=== PATIENT | female | born 1955 | race Caucasian/White ===

== ENCOUNTER 2020-04-19 10:18 | Outpatient (CLI) | payer MEDICARE ==
[2020-04-19 12:11] LABS: THYROID STIMULATING HORMONE 2.39 uIU/mL (0.34-5.60)
[2020-04-19 12:12] LABS: FREE T3 2.87 pg/mL (2.5-3.9)
[2020-04-19 12:13] LABS: FREE T4 (FREE THYROXINE) 0.73 ng/dL (0.58-1.64)
== END 2020-04-19 10:19 | disposition home or self-care (01) ==
LOC: LAB 10:18
PROVIDERS: ATTEND Internal Medicine Endocrinology, Diabetes & Metabolism
DX: E89.0 Postprocedural hypothyroidism (principal)
CPT/HCPCS: 36415; 84439; 84443; 84481

== ENCOUNTER 2020-09-17 11:33 | Outpatient (CLI) | payer MEDICARE, OTHER ==
--- NOTE | 2020-09-17 14:18 | XRAY Report ---
PROCEDURE: Cervical Spine 2 View INDICATIONS: CERVICAL NECK SPINE TECHNIQUE: 3 view(s) of the cervical spine were acquired. COMPARISON: None. FINDINGS: Bones: No fractures or dislocations to the T1 level. Odontoid view is suboptimal but grossly unremar kable. Multilevel disc space narrowing and endplate osteophyte formation throughout the mid and lower cervical spine. Mild grade 1 retrolisthesis of C3 on C4. No suspicious bony lesions. Soft tissues: No prevertebral soft tissue swelling. IMPRESSION: Multilevel degenerative disc disease. No acute fracture. No osseous lesion. If symptoms and/or clinical suspicion for pathology continue, further assessment with repeat plain films, or adva nced imaging (e.g., CT, MRI, or bone scan) is recommended for further assessment. Reviewed by: Ramila Mathias MD on 09/17/2020 2:17 PM PST Approved by: Ramila Mathias MD on 09/17/2020 2:17 PM PST Station ID: [id number]
== END 2020-09-17 11:34 | disposition home or self-care (01) ==
LOC: DI.N 11:33
PROVIDERS: ATTEND Family Medicine
DX: M50.30 Other cervical disc degeneration, unspecified cervical region (principal)

== ENCOUNTER 2021-08-18 11:55 | Outpatient (CLI) | payer MEDICARE, OTHER ==
[2021-08-18 12:54] LABS: THYROID STIMULATING HORMONE 14.62 uIU/mL (0.34-5.60)
[2021-08-18 12:55] LABS: FREE T3 3.32 pg/mL (2.5-3.9)
[2021-08-18 12:56] LABS: FREE T4 (FREE THYROXINE) 0.67 ng/dL (0.58-1.64)
== END 2021-08-18 11:56 | disposition home or self-care (01) ==
LOC: LAB 11:55
PROVIDERS: ATTEND Internal Medicine Endocrinology, Diabetes & Metabolism
DX: E06.3 Autoimmune thyroiditis (principal); E89.0 Postprocedural hypothyroidism; C73 Malignant neoplasm of thyroid gland
CPT/HCPCS: 36415; 81599; 84432; 84439; 84443; 84481; 86800

== ENCOUNTER 2021-10-20 12:20 | Outpatient (CLI) | payer OTHER ==
--- NOTE | 2021-10-20 13:47 | XRAY Report ---
PROCEDURE: Thoracic Spine 2 View INDICATIONS: THORACIC PAIN TECHNIQUE: 3 views of the thoracic spine were acquired. COMPARISON: None. FINDINGS: Bones: No fractures or dislocations. No suspicious bony lesions. Visualized ribs are intact. Mild m ultilevel disc space narrowing and endplate osteophyte formation. Soft tissues: No paravertebral str ipe thickening. IMPRESSION: Multilevel degenerative disc disease. No acute fracture. No osseous lesion. If symptoms and/or clinic al suspicion for pathology continue, further assessment with repeat plain films, or advanced imaging (e.g., CT, MRI, or bone scan) is recommended for further assessment. Reviewed by: Ramila Mathias MD on 10/20/2021 1:46 PM PDT Approved by: Ramila Mathias MD on 10/20/2021 1:46 PM PDT Station ID: [id number]
== END 2021-10-20 12:21 | disposition home or self-care (01) ==
LOC: DI.N 12:20
PROVIDERS: ATTEND Family Medicine
DX: M51.34 Other intervertebral disc degeneration, thoracic region (principal)

== ENCOUNTER 2022-02-15 11:18 | Outpatient (CLI) | payer OTHER ==
--- NOTE | 2022-02-15 14:05 | XRAY Report ---
PROCEDURE: Foot 3 View LT INDICATIONS: L FOOT PX TECHNIQUE: 3 views of the foot were acquired. COMPARISON: None FINDINGS: Bones: No fractures or dislocations. Degenerative changes of the interphalangeal joints. No suspici ous bony lesions. No erosions. Soft tissues: No tibiotalar joint effusion. Achilles tendon appears normal. IMPRESSION: Degenerative changes. No acute abnormality. Reviewed by: Mark Barajas on 02/15/2022 2:04 PM PDT Approved by: Mark Barajas on 02/15/2022 2:04 PM PDT Station ID: [id number]
--- NOTE | 2022-02-15 14:11 | XRAY Report ---
PROCEDURE: Knee 3 View RT INDICATIONS: R KNEE PX TECHNIQUE: 3 views of the right knee(s) were acquired. COMPARISON: None. FINDINGS: Bones: There is a transverse fracture of the patella. No suspicious bony lesions. Soft tissues: Suprapatellar joint effusion. No suspicious soft tissue calcifications. IMPRESSION: Transverse patellar fracture. Reviewed by: Mark Barajas on 02/15/2022 2:09 PM PDT Approved by: Mark Barajas on 02/15/2022 2:09 PM PDT Station ID: [id number]
== END 2022-02-15 11:19 | disposition home or self-care (01) ==
LOC: DI.N 11:18
PROVIDERS: ATTEND Physician Assistant
DX: S82.031A Displaced transverse fracture of right patella, initial encounter for closed fracture (principal); M19.072 Primary osteoarthritis, left ankle and foot

== ENCOUNTER 2022-04-06 13:38 | Outpatient (CLI) | payer MEDICARE, OTHER ==
--- NOTE | 2022-04-06 17:13 | XRAY Report ---
PROCEDURE: Knee 3 View RT INDICATIONS: RIGHT KNEE PAIN TECHNIQUE: 2 views of the right knee(s) were acquired. COMPARISON: X-ray right knee, 02/28/2010 22 and 02/15/2022. FINDINGS: Bones: There is a nondisplaced transverse fracture in the inferior pole of the patella, unchanged in alignment. No suspicious bony lesions. Soft tissues: Small joint effusion, decreased. No suspicious soft tissue calcifications. IMPRESSION: Healing patellar fracture with stable alignment. Reviewed by: Mirta Diggs MD on 04/06/2022 5:12 PM PDT Approved by: Mirta Diggs MD on 04/06/2022 5:12 PM PDT Station ID: [id number]
== END 2022-04-06 13:39 | disposition home or self-care (01) ==
LOC: DI.N 13:38
PROVIDERS: ATTEND Family Medicine
DX: S82.034D Nondisplaced transverse fracture of right patella, subsequent encounter for closed fracture with routine healing (principal)

== ENCOUNTER 2023-08-23 11:23 | Outpatient (CLI) | payer MEDICARE, OTHER ==
--- NOTE | 2023-08-23 14:30 | XRAY Report ---
PROCEDURE: Cervical Spine 2-3V INDICATIONS: CHRONIC PAIN TECHNIQUE: 3 view(s) of the cervical spine were acquired. COMPARISON: None. FINDINGS: Bones: No fractures or dislocations to the T1 level. The lateral masses of C1 appear intact on the odontoid view. Dens is not well-seen due to overlying soft tissues. No suspicious bony lesions. Soft tissues: No prevertebral soft tissue swelling. IMPRESSION: No displaced fracture or traumatic subluxation. Reviewed by: Pierre Lara MD on 08/23/2023 2:28 PM PST Approved by: Pierre Lara MD on 08/23/2023 2:28 PM PST Station ID: [id number]
--- NOTE | 2023-08-23 14:40 | XRAY Report ---
PROCEDURE: Lumbar Spine 2-3V INDICATIONS: CHRONIC PAIN TECHNIQUE: 2views of the lumbar spine were acquired. COMPARISON: Thoracic spine x-ray 10/20/2021. FINDINGS: Bones: 5 [id number]-hyebkvy vertebrae are present. Mild kyphotic deformity caused by anterior compress ion deformity of L2 vertebral body appearing similar to prior radiograph from 10/20/2021 x-ray thoraci c spine, lateral view. Schmorl's node of T12 also noted. Osteopenia noted. Soft tissues: Overlying bowel gas pattern is normal. No suspicious soft tissue calcifications. Rig ht upper quadrant surgical clips noted. IMPRESSION: 1. Severe osteopenia 2. Anterior compression deformity of L2 with approximately 25% height loss; appearing similar to prio r study on 10/20/2021 3. Question Schmorl's node of superior endplate of T12 versus small compression deformity of superior endplate of unknown chronicity. Reviewed by: Pierre Lara MD on 08/23/2023 2:38 PM PST Approved by: Pierre Lara MD on 08/23/2023 2:38 PM PST Station ID: [id number]
--- NOTE | 2023-08-23 14:47 | XRAY Report ---
PROCEDURE: Thoracic Spine 2V INDICATIONS: CHRONIC PAIN TECHNIQUE: 3 views of the thoracic spine were acquired. COMPARISON: Thoracic spine radiograph 10/20/2021. FINDINGS: Bones: Multilevel Schmorl's node versus mild compression deformities of the lower thoracic vertebral of unknown chronicity. No suspicious bony lesions. Soft tissues: No paravertebral stripe thickening. Life soft tissues appear unremarkable. IMPRESSION: Multilevel Schmorl's lobe versus compression deformities of lower thoracic vertebral bodies poorly ev aluated due to osteopenia. If Clinically indicated, MRI may provide additional diagnostic benefit. Reviewed by: Pierre Lara MD on 08/23/2023 2:46 PM PST Approved by: Pierre Lara MD on 08/23/2023 2:46 PM PST Station ID: [id number]
== END 2023-08-23 11:24 | disposition home or self-care (01) ==
LOC: DI.N 11:23
PROVIDERS: ATTEND Chiropractor
DX: G89.29 Other chronic pain (principal); M85.88 Other specified disorders of bone density and structure, other site; R93.7 Abnormal findings on diagnostic imaging of other parts of musculoskeletal system; M51.36 Other intervertebral disc degeneration, lumbar region